=== PATIENT | female | born 1960 | race American Indian/Alaskan Native ===

== ENCOUNTER 2016-12-08 07:15 | Outpatient (CLI) | payer BC ==
--- NOTE | 2016-12-09 09:08 | PET Report ---
PET/CT:12/08/16 07:15:00 CLINICAL: Uterine cancer restaging. RADIOPHARMACEUTICAL: 11.57mCi F18-FDG. COMPARISON: 08/11/16 PET/CT TECHNIQUE- Following intravenous injection of F-18 FDG and an approximately 60 minute uptake period, CT and PET images from the mid skull to the upper thighs were acquired with the patient in the fasted state. No contrast was administered. The CT protocol used for this PET CT study is designed for attenuation correction and anatomic localization of PET abnormalities. This garbage pick up worker CT is not desired to produce and cannot replace, osgcp-lu-axq-art diagnostic CT scans with specific imaging protocols for different body parts and indications. Plasma glucose at the time of this test: 134g/dl. The standardized uptake values (SUV) are normalized to patient body weight and indicate the highest activity concentration (SUV max) in a given disease site. FINDINGS: Brain--Physiologic FDG uptake in the visualized regions of the brain. Neck--Physiologic FDG uptake . Chest--Physiologic FDG uptake in mediastinal blood pool and myocardium. Lungs--No abnormal uptake. No pulmonary nodule or mass. Pleura/pericardium--No abnormal uptake. Stable non-FDG avid left lower lobe pleural thickening. Thoracic nodes--Stable FDG uptake in left paraesophageal lymph node or lymph nodes with SUV 9.5. FDG uptake in the left hilum is equal to background. Hepatobiliary--No abnormal uptake. Liver background SUV mean, as a reference for comparing FDG studies, is 5.1 compared to 4.9 on the last exam. No liver mass. Spleen--No abnormal uptake. Pancreas--No abnormal uptake. Adrenal Glands--No abnormal uptake. Kidneys/Ureters/Bladder--No abnormal uptake. Abdominopelvic Nodes--No abnormal uptake. Bowel/Peritoneum/Mesentery--No abnormal uptake. Pelvic organs--No abnormal uptake. Status post hysterectomy. Bones/Soft Tissues--No abnormal uptake. IMPRESSION- Stable disease.
== END 2016-12-08 07:16 | disposition home or self-care (01) ==
LOC: PET 07:15
PROVIDERS: ATTEND Internal Medicine Hematology & Oncology
DX: C55 Malignant neoplasm of uterus, part unspecified (principal); Z79.899 Other long term (current) drug therapy; Z90.710 Acquired absence of both cervix and uterus
CPT/HCPCS: 78815; 82962; A9552

== ENCOUNTER 2017-03-30 06:44 | Outpatient (CLI) | payer BC ==
--- NOTE | 2017-03-30 10:38 | PET Report ---
PET/CT:03/30/17 06:44:00 CLINICAL: Uterine cancer restaging. RADIOPHARMACEUTICAL: 13.995mCi F18-FDG. COMPARISON: Thirteen 2 thousand seventeen PET/CT TECHNIQUE- Following intravenous injection of F-18 FDG and an approximately 60 minute uptake period, CT and PET images from the mid skull to the upper thighs were acquired with the patient in the fasted state. No contrast was administered. The CT protocol used for this PET CT study is designed for attenuation correction and anatomic localization of PET abnormalities. This vinyl welder and fabricator CT is not desired to produce and cannot replace, iszao-lr-vyj-art diagnostic CT scans with specific imaging protocols for different body parts and indications. Plasma glucose at the time of this test: 139g/dl. The standardized uptake values (SUV) are normalized to patient body weight and indicate the highest activity concentration (SUV max) in a given disease site. FINDINGS: Brain--Physiologic FDG uptake in the visualized regions of the brain. Neck--Physiologic FDG uptake . Chest--Physiologic FDG uptake in mediastinal blood pool and myocardium. Lungs--No abnormal uptake. No pulmonary nodule or mass. Pleura/pericardium--No abnormal uptake. Thoracic nodes--New FDG avid superior mediastinal pretracheal lymph node measures 1.2 x 1.2 cm with SUV 6.5. A new retrocaval pretracheal lymph node measures 1.6 x 1.2 cm with SUV 9.5. The previously described paraesophageal lymph node measures 2.7 x 1.7 cm with SUV 7.3 compared to 9.9. No other abnormal lymph nodes. Hepatobiliary--No abnormal uptake. Liver background SUV mean, as a reference for comparing FDG studies, is 5.5 compared to 5.5 on the last exam. No liver mass. Spleen--No abnormal uptake. Pancreas--No abnormal uptake. Adrenal Glands--No abnormal uptake. Kidneys/Ureters/Bladder--No abnormal uptake. Abdominopelvic Nodes--No abnormal uptake. Bowel/Peritoneum/Mesentery--No abnormal uptake. Pelvic organs--No abnormal uptake. Bones/Soft Tissues--No abnormal uptake. No suspicious bone lesions. Other findings: Status post hysterectomy. IMPRESSION- Progression of disease with two new FDG avid mediastinal lymph nodes.
== END 2017-03-30 06:45 | disposition home or self-care (01) ==
LOC: PET 06:44
PROVIDERS: ATTEND Internal Medicine Hematology & Oncology
DX: C55 Malignant neoplasm of uterus, part unspecified (principal); I10 Essential (primary) hypertension; E11.9 Type 2 diabetes mellitus without complications; D64.9 Anemia, unspecified; Z90.710 Acquired absence of both cervix and uterus
CPT/HCPCS: 78815; 82962; A9552

== ENCOUNTER 2017-07-13 06:26 | Outpatient (CLI) | payer BC ==
--- NOTE | 2017-07-17 09:11 | PET Report ---
PET/CT:07/13/17 06:26:00 CLINICAL: Uterine cancer restaging. RADIOPHARMACEUTICAL: 15.8mCi F18-FDG. COMPARISON: 03/30/17 PET/CT TECHNIQUE- Following intravenous injection of F-18 FDG and an approximately 60 minute uptake period, CT and PET images from the mid skull to the upper thighs were acquired with the patient in the fasted state. No contrast was administered. The CT protocol used for this PET CT study is designed for attenuation correction and anatomic localization of PET abnormalities. This medical art therapist CT is not desired to produce and cannot replace, lmzgf-ot-adu-art diagnostic CT scans with specific imaging protocols for different body parts and indications. Plasma glucose at the time of this test: 107g/dl. The standardized uptake values (SUV) are normalized to patient body weight and indicate the highest activity concentration (SUV max) in a given disease site. FINDINGS: Brain--Physiologic FDG uptake in the visualized regions of the brain. Neck--Physiologic FDG uptake . Chest--Physiologic FDG uptake in mediastinal blood pool and myocardium. Lungs--A new 1 cm FDG avid right lower lobe lung nodule with SUV 24.7. A new FDG avid left lower lobe lung nodule is inseparable from the descending thoracic aorta and measures approximately 8 mm with SUV 21.6. Pleura/pericardium--No abnormal uptake. Thoracic nodes--Increased size, number and FDG uptake in mediastinal lymph nodes the most prominent is a retrocaval pretracheal lymph node measuring 2.1 x 2.1 cm with SUV 39. New FDG avid right supraclavicular, left internal mammary and left pulmonary hilum. Hepatobiliary--No abnormal uptake. Liver background SUV mean, as a reference for comparing FDG studies, is 5.2 compared to 5.8 on the last exam. No liver mass. Spleen--No abnormal uptake. Pancreas--No abnormal uptake. Adrenal Glands--No abnormal uptake. Kidneys/Ureters/Bladder--No abnormal uptake. Abdominopelvic Nodes--No abnormal uptake. Bowel/Peritoneum/Mesentery--No abnormal uptake. No ascites. Pelvic organs--No abnormal uptake. Status post hysterectomy. Bones/Soft Tissues--Three new FDG avid skeletal lesions. The largest is a 2.3 cm lytic lesion of the L1 vertebral body with SUV 16.7. The lesion erodes through the posterior cortex of the vertebral body. New lytic lesion of the left seventh rib with SUV 29.2. New 1 cm FDG avid lytic lesion of the T12 vertebral body just anterior to the left pedicle with SUV 12.7. IMPRESSION-1. Progressive disease with new pulmonary and skeletal metastasis. 2. Increased size, number and FDG uptake in mediastinal eli metastases. 3. No evidence of hepatic metastasis. 4. The L1 lytic metastasis arose through the posterior margin of the vertebral body which increases the risk for intrathecal metastasis.
== END 2017-07-13 06:27 | disposition home or self-care (01) ==
LOC: PET 06:26
PROVIDERS: ATTEND Internal Medicine Hematology & Oncology
DX: C79.51 Secondary malignant neoplasm of bone (principal); C78.01 Secondary malignant neoplasm of right lung; C78.1 Secondary malignant neoplasm of mediastinum; C55 Malignant neoplasm of uterus, part unspecified; R91.1 Solitary pulmonary nodule; M89.9 Disorder of bone, unspecified; Z90.710 Acquired absence of both cervix and uterus; Z79.899 Other long term (current) drug therapy
CPT/HCPCS: 78815; 82962; A9552

== ENCOUNTER 2017-10-12 09:22 | Outpatient (CLI) | payer BC ==
--- NOTE | 2017-10-13 12:02 | PET Report ---
PET/CT:10/12/17 09:22:00 CLINICAL: Uterine cancer restaging. RADIOPHARMACEUTICAL: 13.12mCi F18-FDG. COMPARISON: 07/13/17 PET/CT TECHNIQUE- Following intravenous injection of F-18 FDG and an approximately 60 minute uptake period, CT and PET images from the mid skull to the upper thighs were acquired with the patient in the fasted state. No contrast was administered. The CT protocol used for this PET CT study is designed for attenuation correction and anatomic localization of PET abnormalities. This spring coiler CT is not desired to produce and cannot replace, befls-qo-adv-art diagnostic CT scans with specific imaging protocols for different body parts and indications. Plasma glucose at the time of this test: 189g/dl. The standardized uptake values (SUV) are normalized to patient body weight and indicate the highest activity concentration (SUV max) in a given disease site. FINDINGS: Brain--Physiologic FDG uptake in the visualized regions of the brain. Neck--New FDG avid right supraclavicular lymph node with SUV 12.6. Physiologic FDG uptake in mucosal structures. Chest--New FDG avid left chest wall mass associated lytic metastasis of the left seventh rib. It measures 5.3 x 3.3 cm with SUV 20.6. Physiologic FDG uptake in mediastinal blood pool and myocardium. Lungs--Previously identified bilateral lung nodules have increased in size and numerous new bilateral multilobar lung nodules are identified. The largest is in the right lower lobe and measures 3.3 x 2.9 cm with a CV 14.4 compared to 1.1 x 1.1 and SUV 24.7. Pleura/pericardium--No abnormal uptake. Thoracic nodes--New FDG avid subcarinal lymph nodes with SUV 10.9. New FDG avid left internal mammary lymph node measures 1.7 x 1.3 cm with SUV is 16.1. Hepatobiliary--No abnormal uptake. Liver background SUV mean, as a reference for comparing FDG studies, is 4.8 compared to 5.2 on the last exam. No liver mass. Spleen--No abnormal uptake. Pancreas--No abnormal uptake. Adrenal Glands--No abnormal uptake. Kidneys/Ureters/Bladder--No abnormal uptake. Abdominopelvic Nodes--No abnormal uptake. Bowel/Peritoneum/Mesentery--No abnormal uptake. Pelvic organs--No abnormal uptake. Bones/Soft Tissues--New FDG avid spine metastases involving T7 with a CV 14.9 and T6. A new FDG avid L3 metastasis with mid wedge compression of the vertebral body. New L5 metastasis with SUV 18.0 and no vertebral body collapse. The L1 lytic metastasis is radiographically stable with SUV 11.0 compared to 30.6. There is erosion of the posterior vertebral body margin and extension into the spinal canal. However, this is unchanged compared to the prior exam. A new lytic metastasis of the left ischium with SUV 16.0. IMPRESSION-Progression of disease with increased size and number of pulmonary metastases. Lytic metastasis of the left seventh rib with a new 5 cm FDG avid soft tissue mass. New FDG avid mediastinal and right supraclavicular lymph nodes. New thoracic and lumbar spinal metastases with a new mid wedge compression fracture of L3. New lytic metastasis of the left ischium.
== END 2017-10-12 09:23 | disposition home or self-care (01) ==
LOC: PET 09:22
PROVIDERS: ATTEND Internal Medicine Hematology & Oncology
DX: C79.51 Secondary malignant neoplasm of bone (principal); C55 Malignant neoplasm of uterus, part unspecified; R91.8 Other nonspecific abnormal finding of lung field; Z79.899 Other long term (current) drug therapy
CPT/HCPCS: 78815; 82962; A9552